=== PATIENT | male | born 1960 | race Caucasian/White ===

== ENCOUNTER 2016-09-18 13:15 | Emergency (ER) | payer BC, OTHER ==
[2016-09-18 13:25] VITALS: BMI 22.0
[2016-09-18] MEDS ORDERED: NS 1,000 ML IV ONE (14:23)
--- NOTE | 2016-09-18 14:27 | EDPRACDOC ---
- General Information Chief Complaint: Male Urogenital Problems Stated Complaint: BLADDER SURGERY LAST FRI LOWER ABD PAIN Time Seen by Provider: 09/18/16 14:08 Information Source: Patient Mode Of Arrival: Car Home Medications: Home Medications Insulin Degludec [Tresiba Flextouch U-200] 15 unit SQ DAILY 06/24/16 Insulin Aspart [Novolog] 0 units SQ .ACHS SLIDING SCALE 07/02/16 Escitalopram Oxalate [Lexapro] 10 mg PO DAILY 07/29/16 Ramipril [Altace] 5 mg PO DAILY 07/29/16 Amoxicillin/Potassium Clav [Augmentin 875-125 Tablet] 1 each PO BID #14 tablet 09/18/16 Oxycodone HCl [Oxycodone Immediate Release] 10 mg PO Q4H PRN 09/18/16 Rosuvastatin Calcium [Crestor] 5 mg PO DAILY 09/18/16 Allergies/Adverse Reactions: Allergies Allergy/AdvReac Type Severity Reaction Status Date / Time No Known Allergies Allergy Verified 09/18/16 13:25 - History of Present Illness Onset: THIS AM HPI: PT REPORTS ACHING DIFFUSE ABD PAIN RADIATING TO GROIN SINCE THIS AM. PT HAD BLADDER RESECTION LAST FRIDAY DUE TO BLADDER CANCER, HAS PARRY IN PLACE, FELT NAUSEATED AND VOMITED X 1 THIS MORNING. Pain Location: Reports: Diffuse Pain Context: Reports: Spontaneous Pain Severity: Severe Pain Quality: Reports: Aching Pain Radiation: Reports: Groin Adult Abdominal History: Reports: Abdominal Surgery Modifying Factors: improves with: Nothing Associated Signs & Symptoms: Reports: Nausea, Vomiting. Denies: Frequency, Hematuria, Hematemesis, Anorexia, Diarrhea, Melena, Dysuria, Fever, Urgency, Chills Oral Intake: Normal Urinary Output: Normal - Treatment Prior to ED Arrival Reported Medications/Treatment TERMINAL GAUGER Treated With Medication TERMINAL GAUGER YES Medications TERMINAL GAUGER (Medication/ OXYCODONE 10MG-1300 Dose/Time) ED Past Medical History - History Reviewed Yes Nurses notes reviewed and agree except as marked - Patient Medical History Cardiac History: Reports: Cardiac Catheterization (15 yrs ago, neg.) GI/ History: Reports: Kidney Stones Musculoskeletal History: Reports: Arthritis Psychological History: Reports: Depression Systemic History: Reports: Cancer (BLADDER), Diabetes Surgical History: Reports: Cardiac Catheterization (15 yrs ago, neg.) - Family Medical History Reports: Hypertension (PARENTS), Cancer (MOTHER COLON CA, FATHER PROSTATE CA, BROTHER BRAIN CA). Denies: Diabetes, Stroke, Cardiac Disorders - Social Medical History Smoking Status: Heavy tobacco smoker (5 or more cigarettes/day or daily pipe/ cigar) ETOH: Social Substance Abuse: None EDM Review of Systems - Review of Systems Constitutional: negative: Chills, Fever Eyes: negative: Blurred Vision, Double Vision Ears: negative: Drainage Throat: negative: Pain Nose: negative: Congestion, Discharge Respiratory: negative: Cough, Shortness of Breath, Wheezing Cardiovascular: negative: Chest Pain, Palpitations Gastrointestinal: Nausea, Pain, Vomiting. negative: Constipation, Diarrhea Genitourinary: negative: Dysuria, Frequency Neurological: negative: Dizziness, Headache, Numbness, Weakness Musculoskeletal: No Symptoms Reported Integumentary: No Symptoms Reported - Physical Exam Constitutional: Alert (Awake), No apparent distress Oriented to: Time, Person, Place Last recorded Vital Signs: Last Vital Signs Temp 98.1 F 09/18/16 14:38 Pulse 102 09/18/16 16:30 Resp 18 09/18/16 16:30 BP 120/70 09/18/16 16:30 Pulse Ox 98 09/18/16 16:30 Oxygen Pulse Oxygen Saturation 98 O2 Device Room Air Oxygen Flow Rate Fraction of Inspired Oxygen ( FIO2) - HEENT Head: Normal ( normocephalic) Eye Exam: Normal (PERRL, EOMI, Sclera white) Oropharynx: Normal (Pharynx:Moist without exudate,Gums-no swelling) Tympanic Membrane: Normal ENT EAC: Normal TMJ: Normal Nose: No Symptoms Reported (septum midline) Neck: Normal (FROM, trachea at midline) - Respiratory/Cardiovascular Respiratory: Normal - CTA (BBS clear to auscultation without adventitious sounds ) Cardiovascular: Normal (RRR without murmur, gallop or rub) - GI Auscultation: Normal (NABS) Palpation: Normal (Soft,No rebound or guarding, non distended) Tenderness: Diffuse, Mild. negative: Guarding, Rebound, Rigidity Boyer's Sign: Negative - Musculoskeletal Back: Normal (Non-Tender) Extremities: Normal (Normal tone, Pulses 2+ No cyanosis or edema, FROM) - Integumentary Skin: Normal, Warm, Dry Lymphatics: Normal (no adenopathy) - Neurologic Memory Impaired: Normal Motor Function: Normal (Normal tone, Pulses 2+ No cyanosis or edema, FROM) Cranial Nerve: Normal (CN II-X11 intact sensation, strength 5/5) Cerebellar: Normal Mood Description: Normal Perception: Normal - Differential Diagnosis Bowel Obstruction, Diverticulitis, IBS, UTI, Ureterolithiasis, Other ( PYELONEPHRITIS) - Results 09/18/16 14:10 09/18/16 14:10 WBC 16.3 xk/uL (3.8-10.8) H 09/18/16 14:10 RBC 4.05 xM/uL (4.70-6.10) L 09/18/16 14:10 Hgb 13.5 g/dL (14.0-18.0) L 09/18/16 14:10 Hct 39.1 % (42-52) L 09/18/16 14:10 MCV 97 fL (80-94) H 09/18/16 14:10 MCH 33.4 pg (27-32) H 09/18/16 14:10 MCHC 34.6 g/dl (33-36) 09/18/16 14:10 RDW 12.3 % (11.5-14.5) 09/18/16 14:10 Plt Count 171 xk/uL (130-400) 09/18/16 14:10 MPV 9.2 fL (7.4-10.4) 09/18/16 14:10 Neut % (Auto) 82.9 % (45-76) H 09/18/16 14:10 Lymph % (Auto) 9.1 % (17-44) L 09/18/16 14:10 [place] % (Auto) 7.4 % (3-10) 09/18/16 14:10 Eos % (Auto) 0.1 % (0-5) 09/18/16 14:10 Baso % (Auto) 0.5 % (0-2) 09/18/16 14:10 Absolute Neuts (auto) 13.37 xk/uL (1.7-8.2) H 09/18/16 14:10 Absolute Lymphs (auto) 1.47 xk/uL (0.65-4.75) 09/18/16 14:10 PT 10.2 SEC (9.2-11.2) 09/18/16 14:10 INR 1.0 09/18/16 14:10 APTT 21.1 SEC (22-35) L 09/18/16 14:10 Sodium 132 mEq/L (137-146) L 09/18/16 14:10 Potassium 4.0 mEq/L (3.5-5.1) 09/18/16 14:10 Chloride 96 mEq/L (98-107) L 09/18/16 14:10 Carbon Dioxide 27 mMOL/L (22-33) 09/18/16 14:10 Anion Gap 13 mEq/L (8-16) 09/18/16 14:10 BUN 20 MG/DL (9-20) 09/18/16 14:10 Creatinine 0.70 MG/DL (0.66-1.25) 09/18/16 14:10 Estimated GFR (MDRD) > 60 mL/min (>=60) 09/18/16 14:10 Glucose 350 mg/dL (70-99) H 09/18/16 14:10 Calculated Osmolality 272 MOs/Kg (270-290) 09/18/16 14:10 Lactic Acid 1.9 mEq/L (0.7-2.1) 09/18/16 14:41 Calcium 8.8 MG/DL (8.4-10.2) 09/18/16 14:10 Corrected Calcium 9.2 MG/DL (8.4-10.2) 09/18/16 14:10 Total Bilirubin 1.0 MG/DL (0.2-1.3) 09/18/16 14:10 AST 19 IU/L (17-59) 09/18/16 14:10 ALT 29 IU/L (21-72) 09/18/16 14:10 Alkaline Phosphatase 91 IU/L (38-126) 09/18/16 14:10 Troponin I < 0.01 ng/mL (<.04) 09/18/16 14:10 Total Protein 6.3 G/DL (6.3-8.2) 09/18/16 14:10 Albumin 3.6 G/DL (3.5-5.0) 09/18/16 14:10 Lipase 11 U/L (23-300) L 09/18/16 14:10 Urine Color Yellow 09/18/16 14:41 Urine Clarity Sl cldy 09/18/16 14:41 Urine pH 6.0 (5.0-8.0) 09/18/16 14:41 Ur Specific Gilbert 1.010 (1.003-1.035) 09/18/16 14:41 Urine Protein 2+ (NEG/TRACE) H 09/18/16 14:41 Urine Glucose (UA) 3+ (NEGATIVE) 09/18/16 14:41 Urine Ketones 1+ (NEGATIVE) H 09/18/16 14:41 Urine Occult Blood 3+ (NEG/TRACE) H 09/18/16 14:41 Urine Nitrite Pos (NEGATIVE) H 09/18/16 14:41 Urine Bilirubin Neg (NEGATIVE) 09/18/16 14:41 Urine Urobilinogen <2.0 MG/DL (0-1) 09/18/16 14:41 Ur Leukocyte Esterase 1+ (NEGATIVE) H 09/18/16 14:41 Urine RBC 30-40 (0-2) H 09/18/16 14:41 Urine WBC 30-40 (0-2) H 09/18/16 14:41 Urine WBC Clumps Present (NONE) H 09/18/16 14:41 Ur Epithelial Cells Occ 09/18/16 14:41 Urine Bacteria 4+ (NEG/FEW) H 09/18/16 14:41 Urine Mucus Sm amt (NEG/OCC) 09/18/16 14:41 Urine Yeast Sm amt (NONE) 09/18/16 14:41 Lab Results 09/18/16 09/18/16 09/18/16 14:41 14:41 14:10 WBC RBC Hgb Hct MCV MCH MCHC RDW Plt Count MPV Neut % (Auto) Lymph % (Auto) [place] % (Auto) Eos % (Auto) Baso % (Auto) Absolute Neuts (auto) Absolute Lymphs (auto) PT 10.2 INR 1.0 APTT 21.1 L Sodium Potassium Chloride Carbon Dioxide Anion Gap BUN Creatinine Estimated GFR (MDRD) Glucose Calculated Osmolality Lactic Acid 1.9 Calcium Corrected Calcium Total Bilirubin AST ALT Alkaline Phosphatase Troponin I Total Protein Albumin Lipase Urine Color Yellow Urine Clarity Sl cldy Urine pH 6.0 Ur Specific Gilbert 1.010 Urine Protein 2+ H Urine Glucose (UA) 3+ Urine Ketones 1+ H Urine Occult Blood 3+ H Urine Nitrite Pos H Urine Bilirubin Neg Urine Urobilinogen <2.0 Ur Leukocyte Esterase 1+ H Urine RBC 30-40 H Urine WBC 30-40 H Urine WBC Clumps Present H Ur Epithelial Cells Occ Urine Bacteria 4+ H Urine Mucus Sm amt Urine Yeast Sm amt 09/18/16 09/18/16 14:10 14:10 WBC 16.3 H RBC 4.05 L Hgb 13.5 L Hct 39.1 L MCV 97 H MCH 33.4 H MCHC 34.6 RDW 12.3 Plt Count 171 MPV 9.2 Neut % (Auto) 82.9 H Lymph % (Auto) 9.1 L [place] % (Auto) 7.4 Eos % (Auto) 0.1 Baso % (Auto) 0.5 Absolute Neuts (auto) 13.37 H Absolute Lymphs (auto) 1.47 PT INR APTT Sodium 132 L Potassium 4.0 Chloride 96 L Carbon Dioxide 27 Anion Gap 13 BUN 20 Creatinine 0.70 Estimated GFR (MDRD) > 60 Glucose 350 H Calculated Osmolality 272 Lactic Acid Calcium 8.8 Corrected Calcium 9.2 Total Bilirubin 1.0 AST 19 ALT 29 Alkaline Phosphatase 91 Troponin I < 0.01 Total Protein 6.3 Albumin 3.6 Lipase 11 L Urine Color Urine Clarity Urine pH Ur Specific Gilbert Urine Protein Urine Glucose (UA) Urine Ketones Urine Occult Blood Urine Nitrite Urine Bilirubin Urine Urobilinogen Ur Leukocyte Esterase Urine RBC Urine WBC Urine WBC Clumps Ur Epithelial Cells Urine Bacteria Urine Mucus Urine Yeast - EKG EKG #1 EKG Time: 14:37 -: Yes EKG interpreted by me Rate: bpm: 110 Rhythm: ST, PVCs Block: None Hypertrophy: None ST: Nonsp Comparison: 03/20/14 (N0 CHANGE) - Diagnostic Imaging CT ABD/PELVIS Image interpreted by: Radiologist 09/18/16 16:43 CT ABDOMEN AND PELVIS WITH CONTRAST TECHNIQUE: Multidetector CT imaging of the abdomen and pelvis was performed using the standard protocol following bolus administration of intravenous contrast. Sagittal and coronal MPR images reconstructed from axial data set. CONTRAST: 100 cc Isovue 370 IV. No oral contrast. COMPARISON: 06/24/2016 FINDINGS: Emphysematous changes at lung bases with minimal dependent bibasilar atelectasis. Multiple tiny nonobstructing RIGHT renal calculi. Mild RIGHT hydronephrosis and proximal ureteral dilatation with mild enhancement of the renal pelvic, calyceal, and proximal RIGHT ureteral wetzel raising question of pyelonephritis/UTI. No definite RIGHT ureteral calculus. On LEFT, ureteral stent extends from renal pelvis and urinary bladder. Calcified granulomata within spleen. Liver, spleen, atrophic pancreas, kidneys, and adrenal glands otherwise unremarkable. Distention of stomach by low-attenuation fluid. Par[place] catheter within urinary bladder with small amount of intravesicular air. Wall thickening of the LEFT lateral aspect of the urinary bladder compatible with edema. Extraluminal gas collection is seen at the posterior LEFT aspect of the urinary bladder measuring 5.1 x 4.0 x 5.5 cm question developing abscess. Gas bubbles within this collection extend immediately adjacent to the LEFT lateral aspect of the Parry catheter ; integrity of the posterior bladder wall on LEFT is uncertain, could be assessed by followup CT cystography. Small amount of free fluid with diffuse edema in the extraperitoneal tissue planes of the pelvis. Minimal prostatic enlargement. Minimal wall thickening of the adjacent rectosigmoid colon. Remaining bowel loops unremarkable without evidence of bowel obstruction. Single small focus of extraluminal gas identified in the LEFT pelvis image 51. No additional free intraperitoneal air. Extensive subcutaneous/abdominal wall pneumatosis is identified extending from the inguinal regions and perineal region anteriorly and laterally at the abdominal wall bilaterally into the lower chest at the highest point imaged, may be seen with laparoscopic insufflation, lack of significant soft tissue edema/ infiltration making this felt to be less likely due to diffuse fasciitis. No mass, adenopathy, hernia, or acute bone lesion. IMPRESSION: Postsurgical changes of the LEFT lateral aspect of the urinary bladder with wall thickening. Extraluminal gas collection adjacent to the posterior bladder wall on LEFT 5.1 x 4.0 x 5.5 cm in size question abscess. Gas bubbles within this collection extend adjacent to the LEFT lateral aspect of the Parry catheter, raising question concerning the integrity of the posterior bladder wall on LEFT; could consider followup CT cystography only after consultation with urology if this requires further assessment. Extensive subcutaneous abdominal wall gas extending into the chest, potentially postoperative related to insufflation during laparoscopic surgery (if laparoscopy was performed); in the absence of laparoscopy, could be related to fasciitis though this lacks significant soft tissue edema and thickening. Enhancing wetzel of RIGHT renal pelvis, renal calices and RIGHT ureter question pyelonephritis/ UTI. Findings called to Elieser Matos on 09/18/2016 at 1634 hours. CXR Image interpreted by: Radiologist 09/18/16 16:23 PORTABLE CHEST 1 VIEW COMPARISON: 07/12/2016 FINDINGS: Lower cervical spine fusion is noted. Cardiomediastinal silhouette is normal. Mediastinal contours appear intact. There is no evidence of focal airspace consolidation, pleural effusion or pneumothorax, accounting for technical limitations of this radiograph. Osseous structures are without acute abnormality. Soft tissues are grossly normal. IMPRESSION: No active disease. Decision Time to Discharge: 16:57 - Departure Disposition: Home Condition: Stable Final Diagnosis: Pyelonephritis, POST-OP ABD PAIN Instructions: Urinary Tract Infection in Men (ED) Education/Counseling Given To: Patient Education/Counseling Given Regarding: Diagnosis, Treatment, Prognosis, Follow Up Referrals: None,No Provider [Primary Care Provider] - One Week Prescriptions: New Amoxicillin/Potassium Clav [Augmentin 875-125 Tablet] 1 each PO BID #14 tablet Continue Insulin Degludec [Tresiba Flextouch U-200] 15 unit SQ DAILY Insulin Aspart [Novolog] 0 units SQ .ACHS SLIDING SCALE Ramipril [Altace] 5 mg PO DAILY Escitalopram Oxalate [Lexapro] 10 mg PO DAILY Rosuvastatin Calcium [Crestor] 5 mg PO DAILY Oxycodone HCl [Oxycodone Immediate Release] 10 mg PO Q4H PRN PRN Reason: Pain Additional Instructions: REST, DRINK PLENTY OF FLUIDS, CONTINUE YOUR USUAL MEDICATIONS BEFORE, FOLLOW UP WITH DR MCCLAIN IN HIS OFFICE TOMORROW. - Physician Consulted Other Time Called: 16:44 Provider Called: Saman Mcclain ([facility] AT [facility]) Time Accounting Administrator Returned Call: 16:50 (PT HAD RESECTION OF POSTERIOR BLADDER WALL , PER DR MCCLAIN THIS IS EXPECTED COURSE, LEAVE PARRY IN PLACE, FOLLOW UP IN OFFICE TOMORROW.)
[2016-09-18 14:38] VITALS: TEMP 98.1
[2016-09-18 14:48] LABS: AUTOMATED BASOPHIL 0.5 % (0-2); AUTOMATED EOSINOPHIL 0.1 % (0-5); AUTOMATED LYMPH 9.1 % (17-44); AUTOMATED MONOCYTE 7.4 % (3-10); AUTOMATED NEUTROPHIL 82.9 % (45-76); MPV 9.2 fL (7.4-10.4)
[2016-09-18 14:52] LABS: PARTIAL THROMB. TIME 21.1 SEC (22-35)
[2016-09-18 14:54] LABS: BLOOD UREA NITROGEN 20 MG/DL (9-20); CALC CORRECTED 9.2 MG/DL (8.4-10.2); CALCIUM 8.8 MG/DL (8.4-10.2); CALCULATED OSMOLALITY 272 MOs/Kg (270-290); CHLORIDE 96 mEq/L (98-107); GLUCOSE 350 mg/dL (70-99); SODIUM LEVEL 132 mEq/L (137-146); TOTAL PROTEIN 6.3 G/DL (6.3-8.2)
[2016-09-18] MEDS ORDERED: Pharmacy Review for Metformin - IV Contrast Given SCH (15:00)
[2016-09-18 15:03] LABS: LEUKOCYTES/URINE 1+ (NEGATIVE); RBC/URINE 30-40 (0-2); URINE OCCULT BLOOD 3+ (NEG/TRACE); WBC/URINE 30-40 (0-2)
[2016-09-18 15:06] LABS: NITRITE/URINE POS (NEGATIVE)
--- NOTE | 2016-09-18 15:15 | DIRPT ---
CLINICAL DATA: Sepsis. EXAM: PORTABLE CHEST 1 VIEW COMPARISON: 07/12/2016 FINDINGS: Lower cervical spine fusion is noted. Cardiomediastinal silhouette is normal. Mediastinal contours appear intact. There is no evidence of focal airspace consolidation, pleural effusion or pneumothorax, accounting for technical limitations of this radiograph. Osseous structures are without acute abnormality. Soft tissues are grossly normal. IMPRESSION: No active disease. Electronically Signed By: Jae Apodaca M.D. On: 09/18/2016 15:12
[2016-09-18] MEDS ORDERED: CEFTRIAXONE 1 GM in D5W 100 ML IV ONE (16:20)
--- NOTE | 2016-09-18 16:38 | DIRPT ---
CLINICAL DATA: Abdominal pain, fever, colon cancer with bladder resection last week EXAM: CT ABDOMEN AND PELVIS WITH CONTRAST TECHNIQUE: Multidetector CT imaging of the abdomen and pelvis was performed using the standard protocol following bolus administration of intravenous contrast. Sagittal and coronal MPR images reconstructed from axial data set. CONTRAST: 100 cc Isovue 370 IV. No oral contrast. COMPARISON: 06/24/2016 FINDINGS: Emphysematous changes at lung bases with minimal dependent bibasilar atelectasis. Multiple tiny nonobstructing RIGHT renal calculi. Mild RIGHT hydronephrosis and proximal ureteral dilatation with mild enhancement of the renal pelvic, calyceal, and proximal RIGHT ureteral wetzel raising question of pyelonephritis/UTI. No definite RIGHT ureteral calculus. On LEFT, ureteral stent extends from renal pelvis and urinary bladder. Calcified granulomata within spleen. Liver, spleen, atrophic pancreas, kidneys, and adrenal glands otherwise unremarkable. Distention of stomach by low-attenuation fluid. [place] catheter within urinary bladder with small amount of intravesicular air. Wall thickening of the LEFT lateral aspect of the urinary bladder compatible with edema. Extraluminal gas collection is seen at the posterior LEFT aspect of the urinary bladder measuring 5.1 x 4.0 x 5.5 cm question developing abscess. Gas bubbles within this collection extend immediately adjacent to the LEFT lateral aspect of the [place] catheter ; integrity of the posterior bladder wall on LEFT is uncertain, could be assessed by followup CT cystography. Small amount of free fluid with diffuse edema in the extraperitoneal tissue planes of the pelvis. Minimal prostatic enlargement. Minimal wall thickening of the adjacent rectosigmoid colon. Remaining bowel loops unremarkable without evidence of bowel obstruction. Single small focus of extraluminal gas identified in the LEFT pelvis image 51. No additional free intraperitoneal air. Extensive subcutaneous/abdominal wall pneumatosis is identified extending from the inguinal regions and perineal region anteriorly and laterally at the abdominal wall bilaterally into the lower chest at the highest point imaged, may be seen with laparoscopic insufflation, lack of significant soft tissue edema/ infiltration making this felt to be less likely due to diffuse fasciitis. No mass, adenopathy, hernia, or acute bone lesion. IMPRESSION: Postsurgical changes of the LEFT lateral aspect of the urinary bladder with wall thickening. Extraluminal gas collection adjacent to the posterior bladder wall on LEFT 5.1 x 4.0 x 5.5 cm in size question abscess. Gas bubbles within this collection extend adjacent to the LEFT lateral aspect of the [place] catheter, raising question concerning the integrity of the posterior bladder wall on LEFT; could consider followup CT cystography only after consultation with urology if this requires further assessment. Extensive subcutaneous abdominal wall gas extending into the chest, potentially postoperative related to insufflation during laparoscopic surgery (if laparoscopy was performed); in the absence of laparoscopy, could be related to fasciitis though this lacks significant soft tissue edema and thickening. Enhancing wetzel of RIGHT renal pelvis, renal calices and RIGHT ureter question pyelonephritis/ UTI. Findings called to Elieser Matos on 09/18/2016 at 1634 hours. Electronically Signed By: North Cassidy M.D. On: 09/18/2016 16:36
[2016-09-18] MEDS ORDERED: ONDANSETRON HCL 4 MG/2 ML VIAL IV ONE (16:39)
[2016-09-18] MEDS ORDERED: HYDROmorphone 1 MG INJECTION IV ONE (16:39)
[2016-09-18 17:50] VITALS: BP 108/64; PULSE 98
== END 2016-09-18 17:49 | disposition home or self-care (01) ==
LOC: ED 13:15
DX: N12 Tubulo-interstitial nephritis, not specified as acute or chronic (principal); G89.18 Other acute postprocedural pain
CPT/HCPCS: 36415; 71010; 74177; 80053; 81001; 83605; 83690; 84484; 85025; 85610; 85730; 87040; 87077; 87086; 87186; 93005; 96361; 96365; 96375; 99284; A9698; J0696; J1170; J2405; J7060